=== PATIENT | male | born 1980 | race Caucasian/White ===

== ENCOUNTER 2017-11-22 16:02 | Inpatient (IN) | payer SELFPAY ==
[2017-11-22] MEDS ORDERED: LORazepam 2 MG/ML VIAL (16:15)
[2017-11-22 16:21] LABS: BLOOD GAS BASE EXCESS -14.6 mmol/L (-2-2); BLOOD GAS CARBOXYHEMOGLOBIN 0.8 % (0-4); BLOOD GAS HCO3 11 mmol/L (22-26); BLOOD GAS METHEMOGLOBIN 0.2 % (0-2); BLOOD GAS O2 HGB SATURATION 98 % (90-100); BLOOD GAS OXYGEN CONTENT 15.8 Vol % (12.0-20.0); BLOOD GAS PCO2 23 mmHg (38-42); BLOOD GAS PO2 158 mmHG (61-120); BLOOD GAS TOTAL HGB 11.3 G/DL (12.0-16.0); CRITICAL VALUE YES; OXYGEN DEVICE NRB MASK; TEMP CORR TO 98.6
[2017-11-22 16:22] LABS: DRAW SITE RT RADIAL; FIO2 100 %; LITER FLOW 15 L/M; NUMBER OF ARTERIAL PUNCTURES 1; STAT YES; ULNAR PULSE PRESENT
[2017-11-22] MEDS: LORazepam 2 MG/ML VIAL IM (16:30)
[2017-11-22] MEDS: LORazepam 2 MG/ML VIAL IV PUSH (16:30)
[2017-11-22] MEDS: SUCCINYLCHOLINE CHLORIDE 200 MG/10 ML VIAL (16:41)
[2017-11-22] MEDS: PROPOFOL 1000 MG/100 ML BTL IV (16:49)
[2017-11-22 17:15] LABS: AMMONIA 72 MCMOL/L (11-32)
[2017-11-22 17:17] LABS: ALT (GPT) 127 U/L (12-78); ANION GAP 21 MEQ/L (5-15); AST (GOT) 324 U/L (15-37); BICARBONATE 16.5 MEQ/L (21.0-32.0); BLOOD UREA NITROGEN 15 MG/DL (7-18); CALCIUM 8.4 MG/DL (8.5-10.1); CHLORIDE 98 MEQ/L (98-107); CREATININE 1.05 MG/DL (0.60-1.30); GLOMERULAR FILTRATION RATE 61 ML/MIN (>89); MAGNESIUM 2.3 MG/DL (1.5-2.5); POTASSIUM 6.2 MEQ/L (3.5-5.1); SODIUM (NA) 135 MEQ/L (136-145)
[2017-11-22 17:24] LABS: APTT (PATIENT) 29.4 SEC (24.3-30.1); AUTOMATED NEUTROPHIL # 16.5 TH/MM3 (1.8-7.7); BASOPHIL # 0.2 TH/MM3 (0-0.2); BASOPHIL % 0.7 % (0.0-2.0); EOSINOPHIL # 0.1 TH/MM3 (0-0.4); EOSINOPHIL % 0.6 % (0.0-4.0); HEMATOCRIT 36.1 % (39.0-51.0); HEMOGLOBIN 11.2 GM/DL (13.0-17.0); INTERNATIONAL NORMALIZED RATIO 1.5 RATIO; LYMPH % 14.9 % (9.0-44.0); LYMPHOCYTE # 3.2 TH/MM3 (1.0-4.8); MEAN CELL VOLUME 83.7 FL (80.0-100.0); MEAN CORPUSCULAR HGB CONC 31.1 % (32.0-36.0); MEAN PLATELET VOLUME 8.2 FL (7.0-11.0); MONO % 6.8 % (0.0-8.0); MONOCYTE # 1.5 TH/MM3 (0-0.9); PLATELET COUNT 358 TH/MM3 (150-450); PROTHROMBIN TIME - PATIENT 15.5 SEC (9.8-11.6); RED BLOOD COUNT 4.32 MIL/MM3 (4.50-5.90); RED CELL DISTRIBUTION WIDTH 15.3 % (11.6-17.2); WHITE BLOOD COUNT 21.4 TH/MM3 (4.0-11.0)
[2017-11-22 17:28] LABS: ALKALINE PHOSPHATASE 220 U/L (45-117); CREATINE KINASE 123 U/L (39-308); TOTAL BILIRUBIN ADULT 0.9 MG/DL (0.2-1.0); TOTAL PROTEIN 7.3 GM/DL (6.4-8.2); TROPONIN I 0.04 NG/ML (0.02-0.05)
[2017-11-22 17:32] LABS: GLUCOSE,RANDOM 45 MG/DL (74-106)
[2017-11-22 17:39] LABS: HEMO FLAGS AUTO DIFF
[2017-11-22 17:44] LABS: BACTERIA, URINE OCC /hpf; BILIRUBIN, URINE NEG (NEG); BLOOD, URINE SMALL (NEG); COMMENT (UR) CATH-CULTURE IND; CULTURE IF INDICATED CATH CULTURE IND; GLUCOSE,URINE 300 mg/dL (NEG); HYALINE CAST, URINE 25 /lpf (RARE); KETONE, URINE NEG (NEG); NITRITE,URINE NEG (NEG); PH, URINE 5.5 (5.0-8.5); URINE COLOR YELLOW (YELLW/STRAW); URINE LEUKOCYTE ESTERASE NEG (NEG)
[2017-11-22 17:45] LABS: CKMB 3.7 NG/ML (0.5-3.6)
[2017-11-22] MEDS: SODIUM CHLOR 0.9% 1000 ML INJ 1,000 ML IV ×3 (17:45→18:18)
[2017-11-22] MEDS: GLUCAGON 1 MG/ML VIAL IM (17:46)
[2017-11-22] MEDS: DEXTROSE 50% IN WATER 50 ML SYRINGE (17:47)
[2017-11-22] MEDS: PROPOFOL 500 MG/50 ML INJ 50 ML (17:48)
[2017-11-22] MEDS: SODIUM BICARBONATE 8.4% INJ 50 MEQ/50 ML SYR (17:52)
[2017-11-22] MEDS: SODIUM BICARBONATE 8.4% INJ 50 MEQ/50 ML SYR IV PUSH (17:54)
[2017-11-22 17:58] LABS: BLOOD GAS BASE EXCESS -2.2 mmol/L (-2-2); BLOOD GAS CARBOXYHEMOGLOBIN 1.3 % (0-4); BLOOD GAS HCO3 22 mmol/L (22-26); BLOOD GAS METHEMOGLOBIN 0.3 % (0-2); BLOOD GAS O2 HGB SATURATION 95 % (90-100); BLOOD GAS OXYGEN CONTENT 13.7 Vol % (12.0-20.0); BLOOD GAS PCO2 36 mmHg (38-42); BLOOD GAS PO2 90 mmHG (61-120); BLOOD GAS TOTAL HGB 10.2 G/DL (12.0-16.0); TEMP CORR TO 98.6
[2017-11-22 17:59] LABS: CRITICAL VALUE NO
[2017-11-22 18:00] LABS: DRAW SITE RT FEMORAL; FIO2 50 %; NUMBER OF ARTERIAL PUNCTURES 1; OXYGEN DEVICE VENTILATOR; STAT YES
[2017-11-22] MEDS: PROPOFOL 1000 MG/100 ML INJ 100 ML IV ×2 (18:15→22:16)
[2017-11-22] MEDS: PIPERACIL-TAZO 4.5 GM PREMIX 100 ML IV (18:16)
[2017-11-22] MEDS: methylPREDNISolone SOD SUCC 125 MG/2 ML VIAL IV PUSH (18:18)
[2017-11-22 18:26] LABS: BANDS 8 % (0-6); CORRECTED NUCLEATED RBC 3 /100 WBC (0-0); LYMPHOCYTES 11 % (9-44); METAMYELOCYTES 2 % (0-1); MONOCYTES 3 % (0-8); MYELOCYTES 2 % (0-0); NEUTROPHIL # MANUAL DIFF 18.2 TH/MM3 (1.8-7.7); NUCLEATED RED BLOOD CELL 3 (0-0); PLASMA CELLS 1 % (0-0); POLYS (SEG NEUTROPHILS) 73 % (16-70); SCAN/DIFF FINAL DIFF MANUAL; WBC DIFF SAMPLE 100
[2017-11-22 18:27] LABS: PLATELET ESTIMATE SMEAR NORMAL (NORMAL); PLATELET MORPHOLOGY NORMAL (NORMAL)
[2017-11-22] MEDS: NURSING INFORMATION XX (18:30)
[2017-11-22] MEDS ORDERED: SENNOSIDES 8.6 MG TAB PO (18:30)
[2017-11-22] MEDS ORDERED: MAGNESIUM HYDROXIDE SUSP 30 ML CUP PO (18:30)
[2017-11-22] MEDS ORDERED: DEXTROSE 50% IN WATER 50 ML VIAL(D50) IV PUSH (18:30)
[2017-11-22] MEDS ORDERED: RESP: ALBUTEROL 2.5 MG/3 ML NEB (PRN) INH (18:30)
[2017-11-22] MEDS ORDERED: CHLORHEXIDINE GLUCONATE 2 % 1 PACK (2 CLOTHS) TOP (18:30)
[2017-11-22] MEDS ORDERED: SODIUM CHLORIDE 0.9% FLUSH 10 ML FLUSH IV FLUSH (18:30)
[2017-11-22] MEDS ORDERED: fentaNYL DRIP 250 ML IV (18:30)
[2017-11-22] MEDS ORDERED: CALCIUM GLUCONATE 10% 1 GM/10 ML VIAL SLOW IVP (18:30)
[2017-11-22] MEDS: SODIUM POLYSTYRENE SULFONATE SUSP 15 GM/60 ML CUP PO (18:30)
[2017-11-22] MEDS ORDERED: Vancomycin Consult Pharmacy 1 EA OTHER (18:30)
[2017-11-22] MEDS ORDERED: BISACODYL 10 MG SUPP RECTAL (18:30)
[2017-11-22] MEDS ORDERED: ONDANSETRON HCL 4 MG/2 ML VIAL IV PUSH (18:30)
[2017-11-22] MEDS ORDERED: GLUCAGON 1 MG/ML VIAL OTHER (18:30)
[2017-11-22] MEDS ORDERED: LACTULOSE SYRUP 20 GM/30 ML CUP PO (18:30)
[2017-11-22 18:58] LABS: ALCOHOL LESS THAN 3 MG/DL (0-5)
[2017-11-22 19:26] LABS: LACTIC ACID GHOST NOT REPORTABLE
[2017-11-22] MEDS: VANCOMYCIN INJ 1,000 MG in SODIUM CHLOR 0.9% 250 ML INJ 250 ML IV (19:32)
[2017-11-22 19:51] LABS: AMPHETAMINE, URINE NEG (NEG); BARBITURATES, URINE NEG (NEG); BENZODIAZEPINE,URINE POS (NEG); CANNABINOIDS, URINE NEG (NEG); COCAINE, URINE NEG (NEG)
[2017-11-22] MEDS: RESP: BUDESONIDE 0.5 MG/2 ML NEB NEB ×2 (20:00→23:47)
[2017-11-22] MEDS: DEXTROSE 50% IN WATER 50 ML VIAL(D50) IV PUSH (20:29)
[2017-11-22] MEDS: INSULIN HUMAN REGULAR 1,000 UNITS/10 ML VIAL IV PUSH (20:29)
[2017-11-22] MEDS: CALCIUM GLUCONATE INJ 1 GM in SODIUM CHLORIDE 0.9% INJ 100 ML IV (20:30)
[2017-11-22] MEDS: SODIUM BICARBONATE 8.4% SOLN 50 MEQ/50 ML VIAL SLOW IVP (20:33)
[2017-11-22] MEDS: SODIUM CHLORIDE 0.9% FLUSH 10 ML FLUSH IV FLUSH (21:00)
[2017-11-22] MEDS: LACTULOSE SYRUP 20 GM/30 ML CUP PO (21:00)
[2017-11-22] MEDS: DOCUSATE SODIUM 50 MG/SENNA 8.6 MG TAB PO (21:00)
[2017-11-22] MEDS: SODIUM BICARBONATE 8.4% INJ 100 MEQ in DEXTROSE 5% IN WATE 1000ML INJ 1,000 ML IV (21:14)
[2017-11-22] MEDS: metroNIDAZOLE 500 MG INJ 100 ML IV (21:15)
[2017-11-22 21:25] LABS: BLOOD GAS BASE EXCESS 5.2 mmol/L (-2-2); BLOOD GAS CARBOXYHEMOGLOBIN 1.2 % (0-4); BLOOD GAS HCO3 29 mmol/L (22-26); BLOOD GAS METHEMOGLOBIN 0.2 % (0-2); BLOOD GAS O2 HGB SATURATION 93 % (90-100); BLOOD GAS OXYGEN CONTENT 13.5 Vol % (12.0-20.0); BLOOD GAS PCO2 39 mmHg (38-42); BLOOD GAS PO2 70 mmHG (61-120); BLOOD GAS TOTAL HGB 10.3 G/DL (12.0-16.0); CRITICAL VALUE NO; OXYGEN DEVICE VENTILATOR; TEMP CORR TO 98.6
[2017-11-22 21:26] LABS: DRAW SITE LT RADIAL; FIO2 50 %; NUMBER OF ARTERIAL PUNCTURES 1; STAT NO; ULNAR PULSE PRESENT; VENT SETTINGS PRVC/AC
[2017-11-22] MEDS: RESP: ALBUTEROL 2.5 MG/IPRATROPIUM 0.5 MG NEB (SCH) INH ×2 (21:33→23:47)
[2017-11-22 21:51] LABS: BILIRUBIN, URINE NEG (NEG); BLOOD, URINE SMALL (NEG); GLUCOSE,URINE 70 mg/dL (NEG); HYALINE CAST, URINE 6 /lpf (RARE); KETONE, URINE NEG (NEG); MUCUS URINE FEW /lpf (OCC); NITRITE,URINE NEG (NEG); SQUAMOUS EPITHELIAL CELL URINE 1 /hpf (0-5); URINE COLOR YELLOW (YELLW/STRAW); URINE LEUKOCYTE ESTERASE NEG (NEG)
[2017-11-22 21:54] LABS: POTASSIUM 4.4 MEQ/L (3.5-5.1)
[2017-11-22 21:59] LABS: COMMENT (UR) CATH-CULTURE IND; CULTURE IF INDICATED CATH CULTURE IND
[2017-11-22] MEDS: ARTIFICIAL TEARS OPTH SOLN 15 ML BTL EACH EYE (22:00)
[2017-11-22 22:03] LABS: LACTIC ACID SEPSIS REPEAT 2.9 mmol/L (0.4-2.0)
[2017-11-22] MEDS: DEXT 5%-NACL 0.45% 1000 ML INJ 1,000 ML IV (22:18)
[2017-11-22 22:29] LABS: HEPATITIS B SURFACE ANTIGEN NONREACTIVE (NONREACTIVE)
[2017-11-22 23:02] LABS: HEPATITIS A AB IGM NONREACTIVE (NONREACTIVE); HEPATITIS B CORE AB IGM NONREACTIVE (NONREACTIVE)
[2017-11-22 23:03] LABS: HEPATITIS C AB IgG REACTIVE (NONREACTIVE)
[2017-11-22] MEDS: IOHEXOL 350 MG/ML 10 ML VIAL (for RAD DIAG) IVCONTRAST (23:51)
[2017-11-23] MEDS: CHLORHEXIDINE 0.12% (ORAL KIT) 15 ML CUP MT ×3 (00:15→20:00)
[2017-11-23] MEDS: AZTREONAM INJ 2,000 MG in SODIUM CHLORIDE 0.9% INJ 100 ML IV ×4 (00:16→20:14)
[2017-11-23 00:34] LABS: HEMATOCRIT 28.2 % (39.0-51.0); HEMOGLOBIN 9.2 GM/DL (13.0-17.0); MEAN CELL VOLUME 80.1 FL (80.0-100.0); MEAN CORPUSCULAR HGB CONC 32.4 % (32.0-36.0); PLATELET COUNT 200 TH/MM3 (150-450); RED BLOOD COUNT 3.53 MIL/MM3 (4.50-5.90); RED CELL DISTRIBUTION WIDTH 14.9 % (11.6-17.2); REVIEW FLAG FINAL; WHITE BLOOD COUNT 9.7 TH/MM3 (4.0-11.0)
[2017-11-23 00:45] LABS: APTT (PATIENT) 32.3 SEC (24.3-30.1); INTERNATIONAL NORMALIZED RATIO 1.6 RATIO; PROTHROMBIN TIME - PATIENT 16.3 SEC (9.8-11.6)
[2017-11-23 00:46] LABS: LACTIC ACID 1.9 mmol/L (0.4-2.0)
[2017-11-23 00:59] LABS: POTASSIUM 4.4 MEQ/L (3.5-5.1)
[2017-11-23] MEDS: metroNIDAZOLE 500 MG INJ 100 ML IV ×4 (01:05→20:14)
[2017-11-23] MEDS: HEPARIN-D5W 25,000 U/250 ML 250 ML IV ×2 (01:08→19:35)
[2017-11-23] MEDS: PROPOFOL 1000 MG/100 ML INJ 100 ML IV ×2 (02:25→05:50)
[2017-11-23] MEDS: CHLORHEXIDINE GLUCONATE 2 % 1 PACK (2 CLOTHS) TOP ×2 (02:31→22:54)
[2017-11-23 03:46] LABS: AUTOMATED NEUTROPHIL # 8.3 TH/MM3 (1.8-7.7); BASOPHIL % 0.3 % (0.0-2.0); EOSINOPHIL % 0.1 % (0.0-4.0); HEMATOCRIT 31.8 % (39.0-51.0); HEMO FLAGS DIFF FINAL; HEMOGLOBIN 10.4 GM/DL (13.0-17.0); LYMPH % 12.8 % (9.0-44.0); LYMPHOCYTE # 1.3 TH/MM3 (1.0-4.8); MEAN CELL VOLUME 79.5 FL (80.0-100.0); MEAN CORPUSCULAR HEMOGLOBIN 25.9 PG (27.0-34.0); MEAN CORPUSCULAR HGB CONC 32.5 % (32.0-36.0); MEAN PLATELET VOLUME 7.8 FL (7.0-11.0); MONO % 2.7 % (0.0-8.0); MONOCYTE # 0.3 TH/MM3 (0-0.9); NEUT % 84.1 % (16.0-70.0); PLATELET COUNT 229 TH/MM3 (150-450); RED BLOOD COUNT 4.01 MIL/MM3 (4.50-5.90); RED CELL DISTRIBUTION WIDTH 14.9 % (11.6-17.2); WHITE BLOOD COUNT 9.8 TH/MM3 (4.0-11.0)
[2017-11-23 03:59] LABS: AMMONIA 29 MCMOL/L (11-32)
[2017-11-23 04:00] LABS: HAPTOGLOBIN 186 MG/DL (30-200)
[2017-11-23 04:03] LABS: LACTIC ACID 1.6 mmol/L (0.4-2.0)
[2017-11-23 04:12] LABS: AMYLASE 93 U/L (25-115); CHOLESTEROL 66 MG/DL (120-200); LIPASE 92 U/L (73-393); TRIGLYCERIDES 85 MG/DL (42-150)
[2017-11-23] MEDS: RESP: ALBUTEROL 2.5 MG/IPRATROPIUM 0.5 MG NEB (SCH) INH ×5 (04:12→20:22)
[2017-11-23 04:14] LABS: CORTISOL 35.4 MCG/DL
[2017-11-23 04:17] LABS: ALBUMIN 1.9 GM/DL (3.4-5.0); ANION GAP 9 MEQ/L (5-15); BICARBONATE 31.4 MEQ/L (21.0-32.0); BLOOD UREA NITROGEN 16 MG/DL (7-18); CALCIUM 8.1 MG/DL (8.5-10.1); CHLORIDE 100 MEQ/L (98-107); CREATININE 0.75 MG/DL (0.60-1.30); GLOMERULAR FILTRATION RATE 90 ML/MIN (>89); GLUCOSE,RANDOM 150 MG/DL (74-106); POTASSIUM 4.5 MEQ/L (3.5-5.1); SODIUM (NA) 140 MEQ/L (136-145)
[2017-11-23 04:21] LABS: ALKALINE PHOSPHATASE 183 U/L (45-117); ALT (GPT) 410 U/L (12-78); AST (GOT) 1211 U/L (15-37); TOTAL PROTEIN 6.4 GM/DL (6.4-8.2)
[2017-11-23 04:23] LABS: LDH SERUM 1063 U/L (87-241)
[2017-11-23 04:23] LABS: CHOLESTEROL/ HDL RATIO 4.45 RATIO; CREATINE KINASE 112 U/L (39-308); HDL CHOLESTEROL 14.8 MG/DL (40.0-60.0); LDL CHOLESTEROL 34 MG/DL (0-99); TROPONIN I 0.15 NG/ML (0.02-0.05)
[2017-11-23 05:36] LABS: BLOOD GAS BASE EXCESS 7.4 mmol/L (-2-2); BLOOD GAS HCO3 32 mmol/L (22-26); BLOOD GAS O2 HGB SATURATION 96 % (90-100); BLOOD GAS OXYGEN CONTENT 14.2 Vol % (12.0-20.0); BLOOD GAS PCO2 47 mmHg (38-42); BLOOD GAS PO2 122 mmHg (61-120); BLOOD GAS TOTAL HGB 10.3 G/DL (12.0-16.0); CRITICAL VALUE NO; DRAW SITE LT RADIAL; FIO2 40 %; NUMBER OF ARTERIAL PUNCTURES 1; OXYGEN DEVICE VENTILATOR; STAT NO; TEMP CORR TO 98.6; ULNAR PULSE PRESENT; VENT SETTINGS 16/500/IT1.0/5PEEP
[2017-11-23] MEDS: ARTIFICIAL TEARS OPTH SOLN 15 ML BTL EACH EYE ×3 (05:48→20:14)
[2017-11-23] MEDS: INSULIN NovoLIN REGULAR SUPPLEMENTAL SCALE SQ ×5 (05:49→22:53)
[2017-11-23] MEDS: SODIUM BICARBONATE 8.4% INJ 100 MEQ in DEXTROSE 5% IN WATE 1000ML INJ 1,000 ML IV (05:50)
[2017-11-23 07:22] LABS: APTT (PATIENT) 37.3 SEC (24.3-30.1); INTERNATIONAL NORMALIZED RATIO 1.5 RATIO; PROTHROMBIN TIME - PATIENT 15.6 SEC (9.8-11.6)
[2017-11-23] MEDS: DOCUSATE SODIUM 50 MG/SENNA 8.6 MG TAB PO ×2 (07:50→20:13)
[2017-11-23] MEDS: LANSOPRAZOLE SOLUTAB 30 MG TAB G-TUBE (07:50)
[2017-11-23] MEDS: LACTULOSE SYRUP 20 GM/30 ML CUP PO ×4 (07:50→20:13)
[2017-11-23] MEDS: VANCOMYCIN 1,000 MG/NS 250 ML IV (07:51)
[2017-11-23] MEDS: SODIUM CHLORIDE 0.9% FLUSH 10 ML FLUSH IV FLUSH ×2 (08:14→20:14)
[2017-11-23] MEDS: RESP: BUDESONIDE 0.5 MG/2 ML NEB NEB (08:16)
[2017-11-23] MEDS ORDERED: ARTIFICIAL TEARS OPTH SOLN 15 ML BTL EACH EYE (09:00)
[2017-11-23 09:39] LABS: MRSA PCR SURVEILLANCE MRSA DETECTED (NOT DETECT)
[2017-11-23] MEDS: FUROSEMIDE 40 MG/4 ML VIAL IV PUSH (11:34)
[2017-11-23] MEDS: VANCOMYCIN INJ 1,500 MG in SODIUM CHLORID 0.9% 500 ML INJ 500 ML IV (16:41)
[2017-11-23 16:51] LABS: HEMOGLOBIN A1C 6.5 % (4.3-6.0); HEMOGLOBIN A1a 1.2 %; HEMOGLOBIN A1b 1.8 %; HEMOGLOBIN Ao 83.7 %; HEMOGLOBIN LA1C 2.4 %; HEMOGLOBIN P3 3.9 %
[2017-11-23 19:18] LABS: APTT (PATIENT) 45.2 SEC (24.3-30.1)
[2017-11-23] MEDS: DEXMEDETOMIDINE INJ 200 MCG in SODIUM CHLORIDE 0.9% INJ 50 ML IV (19:48)
[2017-11-24] MEDS: metroNIDAZOLE 500 MG INJ 100 ML IV ×4 (00:10→19:54)
[2017-11-24] MEDS: DEXMEDETOMIDINE INJ 200 MCG in SODIUM CHLORIDE 0.9% INJ 50 ML IV ×2 (00:11→04:19)
[2017-11-24 00:53] LABS: APTT (PATIENT) 32.1 SEC (24.3-30.1)
[2017-11-24] MEDS: AZTREONAM INJ 2,000 MG in SODIUM CHLORIDE 0.9% INJ 100 ML IV ×3 (04:12→19:54)
[2017-11-24] MEDS: ARTIFICIAL TEARS OPTH SOLN 15 ML BTL EACH EYE ×3 (04:12→22:00)
[2017-11-24] MEDS: VANCOMYCIN INJ 1,500 MG in SODIUM CHLORID 0.9% 500 ML INJ 500 ML IV ×2 (05:24→17:46)
[2017-11-24] MEDS: INSULIN NovoLIN REGULAR SUPPLEMENTAL SCALE SQ ×2 (05:51→12:00)
[2017-11-24] MEDS: RESP: BUDESONIDE 0.5 MG/2 ML NEB NEB (08:00)
[2017-11-24] MEDS: CHLORHEXIDINE 0.12% (ORAL KIT) 15 ML CUP MT ×2 (08:00→19:55)
[2017-11-24] MEDS: LACTULOSE SYRUP 20 GM/30 ML CUP PO ×4 (08:46→19:54)
[2017-11-24] MEDS: DOCUSATE SODIUM 50 MG/SENNA 8.6 MG TAB PO ×2 (08:46→19:54)
[2017-11-24] MEDS: LANSOPRAZOLE SOLUTAB 30 MG TAB G-TUBE (08:46)
[2017-11-24] MEDS ORDERED: HALOPERIDOL LACTATE 5 MG/ML AMP IV (09:00)
[2017-11-24] MEDS: SODIUM CHLORIDE 0.9% FLUSH 10 ML FLUSH IV FLUSH ×2 (09:07→19:54)
[2017-11-24] MEDS: FUROSEMIDE 40 MG/4 ML VIAL IV PUSH (09:07)
[2017-11-24] MEDS: THIAMINE HCL 100 MG TAB PO (09:07)
[2017-11-24] MEDS: HEPARIN-D5W 25,000 U/250 ML 250 ML IV (10:42)
[2017-11-24 12:12] LABS: APTT (PATIENT) 76.2 SEC (24.3-30.1)
[2017-11-24] MEDS: HALOPERIDOL LACTATE 5 MG/ML AMP IV ×2 (12:58→19:53)
[2017-11-24] MEDS: LORazepam 2 MG/ML VIAL IV PUSH ×2 (14:44→19:54)
[2017-11-24] MEDS: RESP: ALBUTEROL 2.5 MG/IPRATROPIUM 0.5 MG NEB (SCH) INH (15:21)
[2017-11-24] MEDS: QUEtiapine FUMARATE 25 MG TAB PO (19:54)
[2017-11-24 21:36] LABS: APTT (PATIENT) 30.9 SEC (24.3-30.1)
[2017-11-25] MEDS: HALOPERIDOL LACTATE 5 MG/ML AMP IV ×2 (00:39→04:36)
[2017-11-25] MEDS: LORazepam 2 MG/ML VIAL IV PUSH ×2 (00:39→04:36)
[2017-11-25] MEDS: metroNIDAZOLE 500 MG INJ 100 ML IV ×4 (02:00→22:35)
[2017-11-25] MEDS: CHLORHEXIDINE GLUCONATE 2 % 1 PACK (2 CLOTHS) TOP (03:35)
[2017-11-25 04:36] LABS: AUTOMATED NEUTROPHIL # 7.3 TH/MM3 (1.8-7.7); BASOPHIL % 0.2 % (0.0-2.0); EOSINOPHIL # 0.1 TH/MM3 (0-0.4); EOSINOPHIL % 1.1 % (0.0-4.0); HEMATOCRIT 33.5 % (39.0-51.0); LYMPH % 24.2 % (9.0-44.0); LYMPHOCYTE # 2.6 TH/MM3 (1.0-4.8); MEAN CELL VOLUME 79.6 FL (80.0-100.0); MEAN CORPUSCULAR HGB CONC 32.7 % (32.0-36.0); MEAN PLATELET VOLUME 7.1 FL (7.0-11.0); MONO % 7.4 % (0.0-8.0); MONOCYTE # 0.8 TH/MM3 (0-0.9); NEUT % 67.1 % (16.0-70.0); PLATELET COUNT 285 TH/MM3 (150-450); RED BLOOD COUNT 4.21 MIL/MM3 (4.50-5.90); RED CELL DISTRIBUTION WIDTH 15.1 % (11.6-17.2); WHITE BLOOD COUNT 10.9 TH/MM3 (4.0-11.0)
[2017-11-25 04:48] LABS: APTT (PATIENT) 34.2 SEC (24.3-30.1)
[2017-11-25 04:50] LABS: ALBUMIN 1.6 GM/DL (3.4-5.0); ALKALINE PHOSPHATASE 115 U/L (45-117); ALT (GPT) 210 U/L (12-78); ANION GAP 10 MEQ/L (5-15); AST (GOT) 175 U/L (15-37); BICARBONATE 30.9 MEQ/L (21.0-32.0); BLOOD UREA NITROGEN 19 MG/DL (7-18); CALCIUM 7.3 MG/DL (8.5-10.1); CALCIUM-PROTEIN CORRECTED 8.1 MG/DL (8.5-10.1); CHLORIDE 102 MEQ/L (98-107); CREATININE 0.89 MG/DL (0.60-1.30); GLOMERULAR FILTRATION RATE 97 ML/MIN (>89); GLUCOSE,RANDOM 141 MG/DL (74-106); MAGNESIUM 1.9 MG/DL (1.5-2.5); POTASSIUM 3.6 MEQ/L (3.5-5.1); SODIUM (NA) 143 MEQ/L (136-145); TOTAL BILIRUBIN ADULT 0.4 MG/DL (0.2-1.0); TOTAL PROTEIN 5.6 GM/DL (6.4-8.2)
[2017-11-25 04:58] LABS: HEMO FLAGS AUTO DIFF
[2017-11-25] MEDS: AZTREONAM INJ 2,000 MG in SODIUM CHLORIDE 0.9% INJ 100 ML IV ×3 (05:00→23:51)
[2017-11-25] MEDS: HEPARIN-D5W 25,000 U/250 ML 250 ML IV ×2 (05:09→23:58)
[2017-11-25] MEDS: VANCOMYCIN INJ 1,500 MG in SODIUM CHLORID 0.9% 500 ML INJ 500 ML IV (05:20)
[2017-11-25] MEDS: ARTIFICIAL TEARS OPTH SOLN 15 ML BTL EACH EYE ×3 (05:20→22:00)
[2017-11-25] MEDS: PHARMACY ORDERED LAB (05:20)
[2017-11-25 05:34] LABS: VANCOMYCIN TROUGH 11.7 MCG/ML (5.0-10.0)
[2017-11-25 07:05] LABS: BANDS 2 % (0-6); LYMPHOCYTES 25 % (9-44); MONOCYTES 5 % (0-8); NEUTROPHIL # MANUAL DIFF 7.6 TH/MM3 (1.8-7.7); OVALOCYTES 1+ (NORMAL); PLATELET ESTIMATE SMEAR NORMAL (NORMAL); PLATELET MORPHOLOGY NORMAL (NORMAL); POLYS (SEG NEUTROPHILS) 68 % (16-70); WBC DIFF SAMPLE 100
[2017-11-25 07:06] LABS: SCAN/DIFF FINAL DIFF MANUAL
[2017-11-25] MEDS: CHLORHEXIDINE 0.12% (ORAL KIT) 15 ML CUP MT ×2 (07:20→20:00)
[2017-11-25] MEDS: RESP: BUDESONIDE 0.5 MG/2 ML NEB NEB (08:00)
[2017-11-25] MEDS: RESP: ALBUTEROL 2.5 MG/IPRATROPIUM 0.5 MG NEB (SCH) INH ×3 (08:00→16:00)
[2017-11-25] MEDS: LANSOPRAZOLE SOLUTAB 30 MG TAB G-TUBE (08:30)
[2017-11-25] MEDS: SODIUM CHLORIDE 0.9% FLUSH 10 ML FLUSH IV FLUSH ×2 (08:30→22:36)
[2017-11-25] MEDS ORDERED: DEXTROSE 50% IN WATER 50 ML VIAL(D50) IV PUSH (08:30)
[2017-11-25] MEDS: LACTULOSE SYRUP 20 GM/30 ML CUP PO ×4 (08:30→21:00)
[2017-11-25] MEDS ORDERED: GLUCAGON 1 MG/ML VIAL OTHER (08:30)
[2017-11-25] MEDS: THIAMINE HCL 100 MG TAB PO (08:30)
[2017-11-25] MEDS: DOCUSATE SODIUM 50 MG/SENNA 8.6 MG TAB PO ×2 (08:30→21:00)
[2017-11-25] MEDS: QUEtiapine FUMARATE 25 MG TAB PO ×2 (08:30→22:34)
[2017-11-25] MEDS: MUPIROCIN 2% OINT 1 APPLIC/GM SYR EACH NARE ×2 (09:00→22:33)
[2017-11-25] MEDS: POTASSIUM CHLORIDE 10 MEQ CONTROLLED RELEASE TAB PO (10:06)
[2017-11-25] MEDS: LISINOPRIL 5 MG TAB PO (10:06)
[2017-11-25] MEDS: CARVEDILOL 3.125 MG TAB PO ×2 (10:07→22:34)
[2017-11-25] MEDS: ASPIRIN EC 325 MG TABEC PO (10:07)
[2017-11-25] MEDS: INSULIN ASPART SUPPLEMENTAL SCALE SQ ×3 (11:53→21:00)
[2017-11-25 12:04] LABS: APTT (PATIENT) 21.9 SEC (24.3-30.1)
[2017-11-25 12:12] LABS: WESTERGREN SEDIMENTATION RATE 25 mm/hr (0-15)
[2017-11-25] MEDS: VANCOMYCIN INJ 1,750 MG in SODIUM CHLORID 0.9% 500 ML INJ 500 ML IV (15:00)
[2017-11-25] MEDS ORDERED: NALOXONE HCL 0.4 MG/ML AMP IV PUSH (15:15)
[2017-11-25] MEDS ORDERED: KETOROLAC TROMETHAMINE 30 MG/ML (IVP) VIAL IV PUSH (15:15)
[2017-11-25 21:59] LABS: APTT (PATIENT) 26.5 SEC (24.3-30.1)
[2017-11-25] MEDS: LOPERAMIDE HCL 2 MG CAP PO (22:34)
[2017-11-26] MEDS: CHLORHEXIDINE GLUCONATE 2 % 1 PACK (2 CLOTHS) TOP (04:00)
[2017-11-26 04:25] LABS: APTT (PATIENT) 34.5 SEC (24.3-30.1)
[2017-11-26] MEDS: metroNIDAZOLE 500 MG INJ 100 ML IV ×2 (04:28→10:03)
[2017-11-26] MEDS: AZTREONAM INJ 2,000 MG in SODIUM CHLORIDE 0.9% INJ 100 ML IV (04:42)
[2017-11-26] MEDS: ARTIFICIAL TEARS OPTH SOLN 15 ML BTL EACH EYE ×3 (06:00→22:00)
[2017-11-26] MEDS: VANCOMYCIN INJ 1,750 MG in SODIUM CHLORID 0.9% 500 ML INJ 500 ML IV (06:10)
[2017-11-26 07:36] LABS: AUTOMATED NEUTROPHIL # 13.1 TH/MM3 (1.8-7.7); BASOPHIL # 0.1 TH/MM3 (0-0.2); BASOPHIL % 0.3 % (0.0-2.0); EOSINOPHIL # 0.3 TH/MM3 (0-0.4); EOSINOPHIL % 1.9 % (0.0-4.0); HEMATOCRIT 34.2 % (39.0-51.0); HEMO FLAGS DIFF FINAL; HEMOGLOBIN 10.8 GM/DL (13.0-17.0); LYMPH % 17.3 % (9.0-44.0); MEAN CELL VOLUME 81.1 FL (80.0-100.0); MEAN CORPUSCULAR HEMOGLOBIN 25.7 PG (27.0-34.0); MEAN CORPUSCULAR HGB CONC 31.7 % (32.0-36.0); MONOCYTE # 0.9 TH/MM3 (0-0.9); NEUT % 75.5 % (16.0-70.0); PLATELET COUNT 300 TH/MM3 (150-450); RED BLOOD COUNT 4.22 MIL/MM3 (4.50-5.90); RED CELL DISTRIBUTION WIDTH 15.3 % (11.6-17.2); WHITE BLOOD COUNT 17.4 TH/MM3 (4.0-11.0)
[2017-11-26] MEDS: CHLORHEXIDINE 0.12% (ORAL KIT) 15 ML CUP MT ×2 (08:00→20:00)
[2017-11-26] MEDS: INSULIN ASPART SUPPLEMENTAL SCALE SQ ×4 (08:31→21:00)
[2017-11-26] MEDS: LACTULOSE SYRUP 20 GM/30 ML CUP PO ×4 (08:31→21:00)
[2017-11-26 08:37] LABS: ALBUMIN 1.6 GM/DL (3.4-5.0); ALKALINE PHOSPHATASE 95 U/L (45-117); ALT (GPT) 165 U/L (12-78); ANION GAP 8 MEQ/L (5-15); AST (GOT) 118 U/L (15-37); BICARBONATE 29.9 MEQ/L (21.0-32.0); BLOOD UREA NITROGEN 10 MG/DL (7-18); CALCIUM 7.3 MG/DL (8.5-10.1); CALCIUM-PROTEIN CORRECTED 8.1 MG/DL (8.5-10.1); CHLORIDE 104 MEQ/L (98-107); CREATININE 0.64 MG/DL (0.60-1.30); GLOMERULAR FILTRATION RATE 142 ML/MIN (>89); GLUCOSE,RANDOM 87 MG/DL (74-106); MAGNESIUM 1.9 MG/DL (1.5-2.5); POTASSIUM 3.7 MEQ/L (3.5-5.1); SODIUM (NA) 142 MEQ/L (136-145); TOTAL BILIRUBIN ADULT 0.3 MG/DL (0.2-1.0); TOTAL PROTEIN 5.7 GM/DL (6.4-8.2)
[2017-11-26 09:05] LABS: B-TYPE NATRIURETIC PEPTIDE 546 PG/ML (0-100)
[2017-11-26] MEDS: RESP: ALBUTEROL 2.5 MG/IPRATROPIUM 0.5 MG NEB (SCH) INH ×4 (09:56→23:29)
[2017-11-26] MEDS: RESP: BUDESONIDE 0.5 MG/2 ML NEB NEB ×2 (09:56→19:40)
[2017-11-26] MEDS: CARVEDILOL 3.125 MG TAB PO ×2 (10:03→22:32)
[2017-11-26] MEDS: QUEtiapine FUMARATE 25 MG TAB PO ×2 (10:03→22:33)
[2017-11-26] MEDS: LANSOPRAZOLE SOLUTAB 30 MG TAB G-TUBE (10:04)
[2017-11-26] MEDS: SODIUM CHLORIDE 0.9% FLUSH 10 ML FLUSH IV FLUSH ×2 (10:04→22:40)
[2017-11-26] MEDS: MUPIROCIN 2% OINT 1 APPLIC/GM SYR EACH NARE ×2 (10:04→21:00)
[2017-11-26] MEDS: ASPIRIN EC 325 MG TABEC PO (10:04)
[2017-11-26] MEDS: LISINOPRIL 5 MG TAB PO (10:04)
[2017-11-26] MEDS: DOCUSATE SODIUM 50 MG/SENNA 8.6 MG TAB PO ×2 (10:14→21:00)
[2017-11-26] MEDS: THIAMINE HCL 100 MG TAB PO (10:15)
[2017-11-26] MEDS: HEPARIN-D5W 25,000 U/250 ML 250 ML IV (11:19)
[2017-11-26] MEDS: SPIRONOLACTONE 25 MG TAB PO ×2 (11:20→18:22)
[2017-11-26] MEDS: LACTOBACILLUS ACIDOPHILUS TAB PO ×2 (13:35→18:22)
[2017-11-26] MEDS: MAGNESIUM SULFATE 1 GM PREMIX 100 ML IV ×2 (13:35→14:44)
[2017-11-26] MEDS: ENOXAPARIN SODIUM 100 MG/ML SYRINGE SQ (18:22)
[2017-11-26] MEDS: LORazepam 2 MG/ML VIAL IV PUSH (18:28)
[2017-11-26] MEDS: KETOROLAC TROMETHAMINE 30 MG/ML (IVP) VIAL IV PUSH (18:28)
[2017-11-27 01:59] LABS: THIAMINE 160 nmol/L (70-180)
[2017-11-27] MEDS: PHARMACY ORDERED LAB (02:45)
[2017-11-27] MEDS: CHLORHEXIDINE GLUCONATE 2 % 1 PACK (2 CLOTHS) TOP (02:47)
[2017-11-27] MEDS: LORazepam 2 MG/ML VIAL IV PUSH ×2 (04:18→12:12)
[2017-11-27] MEDS: KETOROLAC TROMETHAMINE 30 MG/ML (IVP) VIAL IV PUSH ×2 (04:19→12:12)
[2017-11-27] MEDS: ARTIFICIAL TEARS OPTH SOLN 15 ML BTL EACH EYE (06:00)
[2017-11-27] MEDS: ENOXAPARIN SODIUM 100 MG/ML SYRINGE SQ (06:00)
[2017-11-27] MEDS: CHLORHEXIDINE 0.12% (ORAL KIT) 15 ML CUP MT (08:00)
[2017-11-27] MEDS: INSULIN ASPART SUPPLEMENTAL SCALE SQ ×2 (08:00→12:16)
[2017-11-27] MEDS: LACTULOSE SYRUP 20 GM/30 ML CUP PO ×2 (10:14→12:16)
[2017-11-27] MEDS: DOCUSATE SODIUM 50 MG/SENNA 8.6 MG TAB PO (10:14)
[2017-11-27] MEDS: MUPIROCIN 2% OINT 1 APPLIC/GM SYR EACH NARE (10:14)
[2017-11-27] MEDS: QUEtiapine FUMARATE 25 MG TAB PO (10:16)
[2017-11-27] MEDS: THIAMINE HCL 100 MG TAB PO (10:16)
[2017-11-27] MEDS: CARVEDILOL 3.125 MG TAB PO (10:16)
[2017-11-27] MEDS: LANSOPRAZOLE SOLUTAB 30 MG TAB G-TUBE (10:16)
[2017-11-27] MEDS: LACTOBACILLUS ACIDOPHILUS TAB PO ×2 (10:16→12:12)
[2017-11-27] MEDS: ASPIRIN EC 325 MG TABEC PO (10:16)
[2017-11-27] MEDS: LISINOPRIL 5 MG TAB PO (10:17)
[2017-11-27] MEDS: SPIRONOLACTONE 25 MG TAB PO (10:17)
[2017-11-27] MEDS: SODIUM CHLORIDE 0.9% FLUSH 10 ML FLUSH IV FLUSH (10:20)
== END 2017-11-27 14:53 | disposition left against medical advice (07) | DRG 871 ==
LOC: NEPE 16:02 → N05B 11-25 16:06 → NEDA 17:55 → NEDH 22:13 → HIME 23:15
PROC: 5A1935Z Respiratory Ventilation, Less than 24 Consecutive Hours (ICD-10-PCS; principal; 2017-11-22)
PROC: 0BH17EZ Insertion of Endotracheal Airway into Trachea, Via Natural or Artificial Opening (ICD-10-PCS; 2017-11-22)
DX: A41.9 Sepsis, unspecified organism (principal); J96.01 Acute respiratory failure with hypoxia; I26.99 Other pulmonary embolism without acute cor pulmonale; R65.21 Severe sepsis with septic shock; G93.41 Metabolic encephalopathy; J81.1 Chronic pulmonary edema; J90 Pleural effusion, not elsewhere classified; R18.8 Other ascites; E72.20 Disorder of urea cycle metabolism, unspecified; I82.621 Acute embolism and thrombosis of deep veins of right upper extremity; E87.2 Acidosis; F11.23 Opioid dependence with withdrawal; E87.1 Hypo-osmolality and hyponatremia; I42.9 Cardiomyopathy, unspecified; D68.9 Coagulation defect, unspecified; E16.2 Hypoglycemia, unspecified; D64.9 Anemia, unspecified; E88.09 Other disorders of plasma-protein metabolism, not elsewhere classified; E83.39 Other disorders of phosphorus metabolism; E87.5 Hyperkalemia; B19.20 Unspecified viral hepatitis C without hepatic coma; G89.29 Other chronic pain; M54.5 Low back pain; F13.10 Sedative, hypnotic or anxiolytic abuse, uncomplicated; F17.200 Nicotine dependence, unspecified, uncomplicated; F31.9 Bipolar disorder, unspecified; F90.9 Attention-deficit hyperactivity disorder, unspecified type; Z76.5 Malingerer [conscious simulation]; Z78.1 Physical restraint status; Z91.14 Patient's other noncompliance with medication regimen
CPT/HCPCS: 31500; 36600; 51702; 70450; 71045; 71275; 74177; 76705; 76937; 80053; 80061; 80074; 80202; 80307; 81001; 82140; 82150; 82533; 82550; 82552; 82607; 82805; 82948; 83010; 83036; 83605; 83615; 83690; 83735; 83880; 84100; 84132; 84425; 84443; 84484; 85007; 85025; 85027; 85610; 85652; 85730; 87040; 87086; 87449; 87641; 87804; 87804-59; 93005; 93306; 93971; 94002; 94003; 94640; 94664; 96372; 96374; 96375; 97162-GP; 99291-25; 99292